=== PATIENT | male | born 1945 | race Caucasian/White ===

== ENCOUNTER 2023-11-13 08:55 | Day surgery (SDC) | payer MEDICARE ==
[~2023-11-13] VITALS: Ht 182.9 cm; Wt 86.9 kg
[2023-11-13] VITALS (7 sets, daily range): BP systolic 135–152; BP diastolic 63–84; PULSE 61–82; TEMP 97.1–98
[~2023-11-13 08:55] MED LIST: ALEVE220 MG PO; AMITRIPTYLINE H10 M1 PO; ASPIRIN 32325 MG/TAB PO; ASPIRIN 81M81 MG/TA2 PO; AVAPRO TAB150 MG/TAB PO; BENICAR20 MG PO; CELEXA40 MG PO; CEPHALEXIN500 M1 PO; CHOLESTEROL MED; CLARITIN 1010 MG/TAB PO; CLEOCIN HC150 MG/CAP PO; CLOPIDOGREL; EFFIENT10 MG PO; FLONASEALLERGY NS; Famotidine 20 MG TAB PO SCH; GLUCOSAMINE & C1 CA2 PO; GLUCOSAMINE & C1 CAP PO; LIPITOR 80MG80 MG PO; LIVALO PO; LIVALO1 MG PO; LIVALO2 MG PO; LOPRESSOR 225 MG/TAB PO; LR 1,000 ML IV SCH; MASON NATURAL1200 MG PO; METOPROLOL TART50 MG PO; MIRALAX PA17 GM/Dose PO; MOBIC15 MG PO; MULTIPLE VITAMI1 CAP PO; NIACIN500 M3 PO; NIASPAN 500MG500 MG PO; NIZORAL CREAM15 GM TP; NORCO 325 MG-51 TAB PO; OXYBUTYNIN5 MG PO; PEPCID 20MG TAB20 MG PO; PRILOSEC 20MG20 MG PO; PROCTOCREAM-HC2.5% RC; PROCTOZONE-HC2.5% RC; RANITIDINE HYD300 MG PO; SINGULAIR 110 MG/TAB PO; STOOL SOFTENER100 M2 PO; TEMOVATE OINT30 GM TOP; TOPROL XL 25MG25 MG PO; TRICOR145 MG PO; TYLENOL 325MG325 MG PO; VENTOLIN0.09 MG IH; VESICARE10 MG PO; VITAMIN C BUFF500 MG PO; VITAMIN C500 MG PO; VITAMIN D1000 IU PO; ZOLOFT50 MG PO
[2023-11-13] MEDS ORDERED: fentaNYL 50 MCG/ML 2 ML VIAL ONE (10:03)
[2023-11-13] MEDS ORDERED: Lidocaine PF 2% (20 MG/ML) 5 ML VIAL ONE (10:03)
[2023-11-13] MEDS ORDERED: CORTISPORIN1 OI1 OP (10:05)
[2023-11-13] MEDS ORDERED: metroNIDAZOLE 100 ML IV ONE (10:11)
[2023-11-13] MEDS ORDERED: dexAMETHasone 10 MG/ML VIAL ONE (10:12)
[2023-11-13] MEDS ORDERED: Ondansetron 4 MG/2 ML VIAL ONE (10:12)
[2023-11-13] MEDS ORDERED: ePHEDrine 50 MG/ML VIAL ONE (10:24)
[2023-11-13] MEDS ORDERED: Glycopyrrolate 0.2 MG/ML 1 ML VIAL ONE (10:24)
[2023-11-13] MEDS ORDERED: Iohexol 350 - 100 ML VIAL URETER-R ONE (10:34)
[2023-11-13] MEDS ORDERED: Lidocaine 2% (20 MG/ML) 20 ML UROJET UR ONE (10:35)
[2023-11-13] MEDS ORDERED: LR 1,000 ML IV ONE (10:40)
[2023-11-13] MEDS ORDERED: PERCOCET 325 MG1 TA2 PO (10:41)
[2023-11-13] MEDS ORDERED: droPERidol 2.5 MG/ML 2 ML VIAL IV PRN (10:45)
[2023-11-13] MEDS ORDERED: hydrALAZINE 20 MG/ML 1 ML VIAL IV PRN (10:45)
[2023-11-13] MEDS ORDERED: Ondansetron 4 MG/2 ML VIAL IV PRN (10:45)
[2023-11-13] MEDS ORDERED: HYDROmorphone 2 MG/1 ML VIAL IV PRN (10:45)
[2023-11-13] MEDS ORDERED: Meperidine 50 MG/ML 1 ML VIAL IV PRN (10:45)
[2023-11-13] MEDS ORDERED: fentaNYL 50 MCG/ML 2 ML VIAL IV PRN (10:45)
--- NOTE | 2023-11-13 18:11 | NUR ---
PT TO RECOVERY BAY FROM PACU S/P TURBT A&O, PLACED ON MONITOR, VSS ON RA RECEIVED REPORT AND ASSUMED CARE OF PT FROM MICKIE DUFF AT BEDSIDE PROVIDED FOOD/FLUIDS, TOLERATING WELL UP TO VOID X2, ~5CC CLOTS AND RED URINE NOTED, PT OTHERWISE DENIES COMPLAINT - OPTIONS REVIEWED, PT WISHING TO STAY LONGER TO OBSERVE BLADDER OUPUT. 3RD VOID SHOWS MUCH IMPROVEMENT - SCAN CLOT, PINK URINE. PT REPORTEDLY COMFORTABLE GOING HOME - UNDERSTANDS TO CALL MD GUZMAN INCREASED BLEEDING/CLOTS, INABILITY TO VOID AFTER 6 HOURS, F/C PT HAS REMAINED A&O, NAD, VSS ON RA, TOLERATING PO, IS WITHOUT SIGNIFICANT COMPLAINT, WITH STEADY GAIT/TANSFER IV D/C'D. D/C INSTRUCTIONS, FOLLOW UP REVIEWED AND HANDED TO PT. ALL QUESTIONS AND CONCERNS ADDRESSED TO PT SATISFACTION. TAKEN TO EXIT VIA W/C WITH ALL BELONGINGS AND PAPERWORK IN HAND, ASSISTED INTO PASSENGER SEAT OF POV. TO DRIVE HOME.
== END 2023-11-13 13:00 | disposition home or self-care (01) ==
LOC: SDCO 08:55
DX: C67.8 Malignant neoplasm of overlapping sites of bladder (principal); R31.0 Gross hematuria; Z87.891 Personal history of nicotine dependence; Z85.46 Personal history of malignant neoplasm of prostate
CPT/HCPCS: C1769; J0690; J1100; J1836; J2405; J2704; J3010; J7120; Q9967

== ENCOUNTER 2023-12-18 06:24 | Day surgery (SDC) | payer MEDICARE, OTHER ==
[~2023-12-18] VITALS: Ht 182.9 cm; Wt 86.7 kg
[~2023-12-18 06:24] MED LIST changes: +CORTISPORIN1 OI1 OP; -Famotidine 20 MG TAB PO SCH; +PERCOCET 325 MG1 TA2 PO
[2023-12-18] MEDS ORDERED: TEMOVATE30CR TOP (07:29)
[2023-12-18 07:30] VITALS: BP 126/75; PULSE 64; TEMP 98.2
[2023-12-18] MEDS ORDERED: VITAMIN D31000 I1 PO (07:30)
[2023-12-18] MEDS ORDERED: Ondansetron 4 MG/2 ML VIAL ONE (07:55)
[2023-12-18] MEDS ORDERED: dexAMETHasone 10 MG/ML VIAL ONE (07:55)
[2023-12-18] MEDS ORDERED: NS 10 ML IV ONE (07:55)
[2023-12-18] MEDS ORDERED: Glycopyrrolate 0.2 MG/ML 1 ML VIAL ONE (07:55)
[2023-12-18] MEDS ORDERED: fentaNYL 50 MCG/ML 2 ML VIAL ONE (07:55)
[2023-12-18] MEDS ORDERED: Lidocaine PF 2% (20 MG/ML) 5 ML VIAL ONE (07:55)
[2023-12-18] MEDS ORDERED: Morphine 2 MG/1 ML VIAL [PACU/SDC ONLY] IV PRN (08:30)
[2023-12-18] MEDS ORDERED: Meperidine 50 MG/ML 1 ML VIAL IV PRN (08:30)
[2023-12-18] MEDS ORDERED: HYDROmorphone 1 MG/1 ML SYRINGE [PACU/SDC ONLY] IV PRN (08:30)
[2023-12-18] MEDS ORDERED: Ondansetron 4 MG/2 ML VIAL IV PRN (08:30)
[2023-12-18] MEDS ORDERED: ePHEDrine 50 MG/ML VIAL ONE (08:42)
[2023-12-18] MEDS ORDERED: Lidocaine 2% (20 MG/ML) 20 ML UROJET UR ONE (08:46)
[2023-12-18] MEDS ORDERED: oxyCODONE/Acetaminophen 5-325 MG TAB PO PRN (09:15)
[2023-12-18] MEDS ORDERED: Hyoscyamine 0.125 MG Sublingual TAB SL PRN (09:15)
[2023-12-18 09:40] VITALS: BP 111/71; PULSE 77; TEMP 97.7
--- NOTE | 2023-12-18 09:40 | NUR ---
PATIENT RETURNED TO ROOM 7 VIA CART, ALERT AND ORIENTED X3. DENIES PAIN, NAUSEA AND SHORTNESS OF BREATH. BREATHING REGULAR AND UNLABORED ON ROOM AIR. SKIN WARM AND DRY. BILATERAL RADIAL AND PEDAL PULSES STRONG AND REGULAR. ABDOMEN SOFT, NONTENDER AND FLAT. NURSE HANDOFF COMPLETED IN ROOM. SEE CHART FOR VITAL SIGNS. PATIENT HAD ORANGE JUICE, WATER AND A MUFFIN. FOOD AND DRINK TOLERATED WELL. NO DYSPHAGIA. CALL LIGHT IN REACH. SPOUSE, TAM, PRESENT IN ROOM. TAM STATED THAT SPOKE WITH HER FOLLOWING SURGERY.
[2023-12-18 09:45] VITALS: BP 132/77; PULSE 73
[2023-12-18 10:00] VITALS: BP 131/88; PULSE 71
[2023-12-18 10:15] VITALS: BP 147/68; PULSE 75
[2023-12-18 10:20] VITALS: BP 132/69; PULSE 80
--- NOTE | 2023-12-18 10:30 | NUR ---
1020: DISCHARGE TEACHING COMPLETED WITH PRINTED EDUCATION AND INSTRUCTIONS SENT HOME WITH PATIENT. FOLLOW UP APPOINTMENT DATE, TIME AND LOCATION COMMUNICATED TO PATIENT AND SPOUSE. BOTH PATIENT AND SPOUSE VERBALIZED UNDERSTANDING. 1027: PATIENT AMBULATED TO RESTROOM WITH STEADY GAIT AND VOIDED WITHOUT DIFFICULTY. PATIENT DENIED BLOOD CLOTS IN URINE. STATED THAT THERE WAS SOME BLOOD IN HIS URINE, BUT DESCRIBED IT MOSTLY PINK IN COLOR. INSTRUCTED PATIENT ON IMPORTANCE OF HYDRATION AND REST. 1028: PATIENT DENIES PAIN AND NAUSEA. TOLERATING FOOD AND DRINK. IV REMOVED. GAUZE AND COBAN PLACED OVER SITE. 1030: PATIENT CHANGED INTO PERSONAL CLOTHING AND DISCHARGED HOME WITH [facility]AM (SPOUSE) TRANSPORT.
== END 2023-12-18 10:30 | disposition home or self-care (01) ==
LOC: SDCO 06:24
DX: C67.8 Malignant neoplasm of overlapping sites of bladder (principal); R31.0 Gross hematuria; Z87.891 Personal history of nicotine dependence; Z90.79 Acquired absence of other genital organ(s); Z85.46 Personal history of malignant neoplasm of prostate; Z79.82 Long term (current) use of aspirin; Z79.02 Long term (current) use of antithrombotics/antiplatelets
CPT/HCPCS: J0690; J1100; J2405; J2704; J3010; J7120